=== PATIENT | female | born 1995 | race Caucasian/White ===

== ENCOUNTER → 2016-12-29 | Outpatient (CLI) | payer BC ==
[~2016-12-29] MED LIST: BACTRIM DS 8001 TAB PO; BIRTH CONTROL PILLS; LAMICTAL 100MG100 MG PO; LORTAB 2.5/5001 TAB PO; LORTAB 5/500 501 TAB PO; NAPROXEN EC500 MG PO; NO HOME MEDICATIONS; RECLIPSEN 0.151 TAB PO; WELLBUTRIN 75MG75 MG PO; ZITHROMAX Z PA250 MG PO
== END ==
LOC: COL.LAB 17:16
DX: I26.99 Other pulmonary embolism without acute cor pulmonale (principal)

== ENCOUNTER → 2017-05-19 | Outpatient (REF) ==
[2017-05-19 19:28] LABS: THYROID STIMULATING HORMONE 1.88 uIU/mL (0.465-4.680)
== END ==
LOC: ZLAB.WCH 18:15
PROVIDERS: Nurse Practitioner Family
DX: Z01.89 Encounter for other specified special examinations (principal)

== ENCOUNTER 2018-06-29 00:18 | Emergency (ER) | payer BC ==
[~2018-06-29] VITALS: Ht 170.2 cm; Wt 54.5 kg
[2018-06-29 00:29] VITALS: BP 114/72; TEMP 98.4
[2018-06-29] MEDS ORDERED: PROZAC 20MG20 MG PO (01:03)
[2018-06-29 02:00] VITALS: PULSE 87
== END 2018-06-29 02:00 | disposition home or self-care (01) ==
LOC: COL.ER 00:18
DX: S93.402A Sprain of unspecified ligament of left ankle, initial encounter (principal); F32.9 Major depressive disorder, single episode, unspecified; F41.9 Anxiety disorder, unspecified